=== PATIENT | male | born 1985 | race Two or more races ===

== ENCOUNTER 2018-02-07 05:01 | Inpatient (IN) | payer MEDICAID ==
[2018-02-06] MEDS: metroNIDAZOLE 500MG/100ML 100 ML IV SCH (06:00)
[~2018-02-07] VITALS: Ht 177.8 cm; Wt 102.6 kg
[2018-02-07 05:52] LABS: Urine WBC None Seen /hpf (0 - 3)
[2018-02-07 06:27] LABS: Urine Amorphous Crystal MANY /hpf (None Seen); Urine Bacteria NONE SEEN /hpf (None Seen); Urine Blood Negative /uL (Negative); Urine Mucus FEW (None Seen); Urine Specific Gravity 1.035 (1.001-1.035)
[2018-02-07 07:53] LABS: Basophils # (auto) 0 uL; Basophils % (auto) 0.2 % (0.0-2.0); Eosinophils # (auto) 0.1 uL; Eosinophils % (auto) 1.1 % (0.0-7.0); Hematocrit 44.4 % (41.0-53.0); Hemoglobin 16.1 g/dL (13.5-17.5); Lymphocytes # (auto) 2.1 uL; Lymphocytes % (auto) 20.3 % (10.0-50.0); Mean Corpuscular Hgb Conc. 36.2 g/dL (32.0-36.0); Mean Corpuscular Volume 88.3 fL (80.0-100.0); Monocytes # (auto) 0.5 uL; Monocytes % (auto) 5.3 % (0.0-12.0); Neutrophils # (auto) 7.4 uL; Neutrophils % (auto) 73.1 % (37.0-80.0); Nucleated Red Blood Cells % 0.2 %; Platelet Count (auto) 178 10^3/uL (140-450); Red Blood Cells 5.03 10^6/uL (4.5-5.90); Red Cell Distribution Width 13.8 % (11.8-14.3); White Blood Cell 10.2 10^3/uL (4.4-10.8)
[2018-02-07 08:06] LABS: BUN/Creatinine Ratio 9.3; Bilirubin, Total 1.3 mg/dL (0.2-1.0); Calcium 8.5 mg/dL (8.5-10.1); Potassium 3.1 mmol/L (3.5-5.1); Total Protein 8.1 g/dL (6.4-8.2)
[2018-02-07] MEDS ORDERED: GASTROGRAFIN 120 ML SOL ONE ×2 (08:36→09:58)
[2018-02-07] MEDS ORDERED: EZ-GAS II GRANULES (RADIOLOGY USE) PO ONE (08:37)
[2018-02-07] MEDS ORDERED: KETOROLAC TROMETH 30 MG/ML 1ML VIAL IV ONE (09:15)
[2018-02-07] MEDS ORDERED: LABETALOL HCL 5 MG/ML ML 20ML VIAL IV PRN (09:45)
[2018-02-07] MEDS ORDERED: POTASSIUM CHL 20MEQ/100ML 100 ML IV ONE ×2 (09:45→17:00)
[2018-02-07] MEDS ORDERED: MORPHINE SULFATE 4 MG/ML SYR/VIAL IV PRN (09:45)
[2018-02-07] MEDS ORDERED: NITROGLYCERIN 0.4 MG SL TAB SL PRN (09:45)
[2018-02-07] MEDS ORDERED: cefTRIAXone 1GM/10ml IVPUSH 10 ML IV ONE (09:45)
[2018-02-07] MEDS: FAMOTIDINE (10MG/ML) 2ML VL IV SCH (12:13)
[2018-02-07] MEDS: ONDANSETRON HCL 4 MG/2 ML VIAL IV PRN ×2 (12:14→15:51)
[2018-02-07] MEDS: SODIUM CHLORIDE 0.9% 1,000 ML IV SCH ×2 (12:21→17:51)
[2018-02-07] MEDS: metroNIDAZOLE 500MG/100ML 100 ML IV SCH ×3 (12:24→22:15)
[2018-02-07] MEDS ORDERED: LORazepam 2MG/ML-1ML VIAL IV ONE (13:15)
[2018-02-07] MEDS ORDERED: ONDANSETRON HCL 4 MG/2 ML VIAL IV ONE (14:45)
[2018-02-07 15:16] VITALS: BP 124/100
[2018-02-07] MEDS ORDERED: PROCHLORPERAZINE EDISYLATE 5 MG/ML 2ML VIAL IV PRN (16:15)
[2018-02-07] MEDS ORDERED: GABA100C9 PO (16:20)
[2018-02-07] MEDS ORDERED: LISI-646 PO (16:20)
[2018-02-07] MEDS ORDERED: IBUP800T24 PO (16:20)
[2018-02-07 16:27] LABS: BUN/Creatinine Ratio 8.7; Calcium 8.6 mg/dL (8.5-10.1); Potassium 3.1 mmol/L (3.5-5.1)
[2018-02-07 17:00] VITALS: BP 124/100
[2018-02-07 17:24] LABS: Lactic Acid w/Reflex 3.7 mmol/L (0.4-2.0)
[2018-02-07] MEDS: MORPHINE SULFATE 4 MG/ML SYR/VIAL IV PRN (19:00)
[2018-02-07 20:00] VITALS: BP 146/85
[2018-02-07 21:36] LABS: Calcium 8.1 mg/dL (8.5-10.1); Potassium 3.1 mmol/L (3.5-5.1)
[2018-02-07 23:07] VITALS: BP 146/85
[2018-02-08] MEDS: MORPHINE SULFATE 4 MG/ML SYR/VIAL IV PRN ×4 (01:00→20:45)
[2018-02-08] MEDS: SODIUM CHLORIDE 0.9% 1,000 ML IV SCH ×3 (03:42→19:00)
[2018-02-08 05:15] LABS: Basophils # (auto) 0 uL; Basophils % (auto) 0.1 % (0.0-2.0); Eosinophils # (auto) 0.1 uL; Eosinophils % (auto) 0.5 % (0.0-7.0); Hematocrit 43.9 % (41.0-53.0); Hemoglobin 15.3 g/dL (13.5-17.5); Lymphocytes # (auto) 2.3 uL; Lymphocytes % (auto) 20.1 % (10.0-50.0); Mean Corpuscular Hemoglobin 31.2 pg (28.0-32.0); Mean Corpuscular Hgb Conc. 34.8 g/dL (32.0-36.0); Mean Corpuscular Volume 89.7 fL (80.0-100.0); Monocytes # (auto) 0.8 uL; Monocytes % (auto) 7.3 % (0.0-12.0); Neutrophils # (auto) 8.3 uL; Nucleated Red Blood Cells % 0.1 %; Platelet Count (auto) 190 10^3/uL (140-450); Red Blood Cells 4.89 10^6/uL (4.5-5.90); Red Cell Distribution Width 13.8 % (11.8-14.3); White Blood Cell 11.5 10^3/uL (4.4-10.8)
[2018-02-08 05:21] LABS: INR 0.98 (0.9-1.15); Prothrombin Time 10.5 sec (9.27-12.13)
[2018-02-08 05:25] VITALS: BP 139/86
[2018-02-08 05:44] LABS: Albumin 3.5 g/dL (3.4-5.0); BUN/Creatinine Ratio 9.4; Calcium 7.7 mg/dL (8.5-10.1)
[2018-02-08 05:46] LABS: Bilirubin, Total 1.3 mg/dL (0.2-1.0); Total Protein 7.1 g/dL (6.4-8.2)
[2018-02-08] MEDS: metroNIDAZOLE 500MG/100ML 100 ML IV SCH ×3 (06:32→21:38)
[2018-02-08 09:00] VITALS: BP 144/82
[2018-02-08] MEDS: cefTRIAXone 1GM/10ml IVPUSH 10 ML IV SCH (09:47)
[2018-02-08] MEDS: FAMOTIDINE (10MG/ML) 2ML VL IV SCH (09:47)
[2018-02-08] MEDS: POTASSIUM CHL 20MEQ/100ML 100 ML IV SCH ×2 (12:00→14:37)
[2018-02-08 13:00] VITALS: BP 130/85
[2018-02-08 16:52] VITALS: BP 145/73
[2018-02-08] MEDS ORDERED: POTASSIUM CHL 20MEQ/100ML 100 ML IV SCH (17:45)
[2018-02-08 20:00] VITALS: BP 145/84
[2018-02-08 22:00] VITALS: BP 145/84
[2018-02-09] MEDS: MORPHINE SULFATE 4 MG/ML SYR/VIAL IV PRN ×2 (02:16→07:28)
[2018-02-09 05:00] VITALS: BP 150/90
[2018-02-09 05:36] LABS: Basophils # (auto) 0.1 uL; Basophils % (auto) 0.4 % (0.0-2.0); Eosinophils # (auto) 0.1 uL; Eosinophils % (auto) 0.7 % (0.0-7.0); Hematocrit 43.5 % (41.0-53.0); Hemoglobin 15.2 g/dL (13.5-17.5); Lymphocytes # (auto) 2.5 uL; Lymphocytes % (auto) 18.6 % (10.0-50.0); Mean Corpuscular Hemoglobin 31.3 pg (28.0-32.0); Mean Corpuscular Volume 89.4 fL (80.0-100.0); Monocytes # (auto) 0.9 uL; Monocytes % (auto) 6.6 % (0.0-12.0); Neutrophils # (auto) 9.8 uL; Neutrophils % (auto) 73.7 % (37.0-80.0); Nucleated Red Blood Cells % 0.1 %; Platelet Count (auto) 180 10^3/uL (140-450); Red Blood Cells 4.86 10^6/uL (4.5-5.90); Red Cell Distribution Width 13.8 % (11.8-14.3); White Blood Cell 13.3 10^3/uL (4.4-10.8)
[2018-02-09 06:01] LABS: Albumin 3.6 g/dL (3.4-5.0); BUN/Creatinine Ratio 9.3; Bilirubin, Total 1.5 mg/dL (0.2-1.0); Calcium 8.2 mg/dL (8.5-10.1); Magnesium 2.4 mg/dL (1.6-2.6); Total Protein 7.3 g/dL (6.4-8.2)
[2018-02-09] MEDS: SODIUM CHLORIDE 0.9% 1,000 ML IV SCH ×3 (06:02→22:38)
[2018-02-09] MEDS: metroNIDAZOLE 500MG/100ML 100 ML IV SCH ×3 (06:02→22:37)
[2018-02-09 06:07] LABS: Potassium 2.9 mmol/L (3.5-5.1)
[2018-02-09] MEDS ORDERED: POTASSIUM CHL 20MEQ/100ML 100 ML IV ONE (07:30)
[2018-02-09 08:00] VITALS: BP 149/85
[2018-02-09 09:00] VITALS: BP 152/83
[2018-02-09] MEDS: ONDANSETRON HCL 4 MG/2 ML VIAL IV PRN (10:00)
[2018-02-09] MEDS: LIDOCAINE 2% IV SCH ×2 (10:30→14:00)
[2018-02-09] MEDS: SODIUM CHL 0.9% IV SCH ×2 (10:30→14:00)
[2018-02-09] MEDS: POTASSIUM CHLORIDE IV SCH ×2 (10:30→14:00)
[2018-02-09] MEDS: cefTRIAXone 1GM/10ml IVPUSH 10 ML IV SCH (11:24)
[2018-02-09] MEDS: FAMOTIDINE (10MG/ML) 2ML VL IV SCH (11:25)
[2018-02-09 13:00] VITALS: BP 142/77
[2018-02-09 16:51] VITALS: BP 140/83
[2018-02-09 22:00] VITALS: BP 156/87
[2018-02-10 05:00] VITALS: BP 146/81
[2018-02-10 05:36] LABS: Basophils # (auto) 0 uL; Basophils % (auto) 0.2 % (0.0-2.0); Eosinophils # (auto) 0.3 uL; Eosinophils % (auto) 3.1 % (0.0-7.0); Hematocrit 40.3 % (41.0-53.0); Hemoglobin 14.5 g/dL (13.5-17.5); Lymphocytes # (auto) 3.1 uL; Lymphocytes % (auto) 29.1 % (10.0-50.0); Mean Corpuscular Hemoglobin 31.7 pg (28.0-32.0); Mean Corpuscular Volume 88.3 fL (80.0-100.0); Monocytes # (auto) 0.8 uL; Monocytes % (auto) 7.2 % (0.0-12.0); Neutrophils # (auto) 6.4 uL; Neutrophils % (auto) 60.4 % (37.0-80.0); Nucleated Red Blood Cells % 0.1 %; Platelet Count (auto) 168 10^3/uL (140-450); Red Blood Cells 4.56 10^6/uL (4.5-5.90); Red Cell Distribution Width 13.9 % (11.8-14.3); White Blood Cell 10.6 10^3/uL (4.4-10.8)
[2018-02-10 05:49] LABS: Albumin 3.3 g/dL (3.4-5.0); BUN/Creatinine Ratio 6.9; Calcium 8.2 mg/dL (8.5-10.1); Potassium 3.1 mmol/L (3.5-5.1)
[2018-02-10 06:00] LABS: Bilirubin, Total 1.2 mg/dL (0.2-1.0); Total Protein 7.1 g/dL (6.4-8.2)
[2018-02-10] MEDS: SODIUM CHLORIDE 0.9% 1,000 ML IV SCH ×3 (06:49→17:52)
[2018-02-10] MEDS: metroNIDAZOLE 500MG/100ML 100 ML IV SCH ×3 (06:49→14:09)
[2018-02-10 08:54] VITALS: BP 157/97
[2018-02-10] MEDS: PANTOPRAZOLE 40 MG TAB PO SCH (09:07)
[2018-02-10] MEDS: cefTRIAXone 1GM/10ml IVPUSH 10 ML IV SCH (09:07)
[2018-02-10 12:02] VITALS: BP 143/78
[2018-02-10] MEDS: FAMOTIDINE (10MG/ML) 2ML VL IV SCH (12:25)
[2018-02-10] MEDS: POTASSIUM CHL 20MEQ/100ML 100 ML IV SCH ×4 (12:26→20:00)
[2018-02-10 16:38] VITALS: BP 152/79
[2018-02-10 22:00] VITALS: BP 150/84
[2018-02-11 05:00] VITALS: BP 149/83
[2018-02-11] MEDS: SODIUM CHLORIDE 0.9% 1,000 ML IV SCH ×2 (05:20→13:40)
[2018-02-11 06:41] LABS: BUN/Creatinine Ratio 8.9; Calcium 8.1 mg/dL (8.5-10.1)
[2018-02-11] MEDS: FAMOTIDINE (10MG/ML) 2ML VL IV SCH (06:42)
[2018-02-11 07:35] LABS: Potassium 2.8 mmol/L (3.5-5.1)
[2018-02-11 08:03] VITALS: BP 142/83
[2018-02-11] MEDS: PANTOPRAZOLE 40 MG TAB PO SCH (09:36)
[2018-02-11 11:34] VITALS: BP 128/65
[2018-02-11] MEDS: cefTRIAXone 1GM/10ml IVPUSH 10 ML IV SCH (12:18)
[2018-02-11] MEDS: metroNIDAZOLE 500MG/100ML 100 ML IV SCH ×2 (14:00→22:47)
[2018-02-11] MEDS: POTASSIUM CHL 20MEQ/100ML 100 ML IV SCH ×4 (14:29→23:59)
[2018-02-11 17:00] VITALS: BP 134/82
[2018-02-11 21:47] VITALS: BP 142/79
[2018-02-11] MEDS: POTASSIUM CHL 20 Meq TABLET PO SCH (21:53)
[2018-02-12 05:00] VITALS: BP 122/73
[2018-02-12] MEDS: metroNIDAZOLE 500MG/100ML 100 ML IV SCH ×2 (05:36→13:34)
[2018-02-12 06:17] LABS: BUN/Creatinine Ratio 8.9; Calcium 8.2 mg/dL (8.5-10.1); Potassium 3.2 mmol/L (3.5-5.1)
[2018-02-12 09:00] VITALS: BP 135/91
[2018-02-12] MEDS: cefTRIAXone 1GM/10ml IVPUSH 10 ML IV SCH (09:00)
[2018-02-12] MEDS: POTASSIUM CHL 20 Meq TABLET PO SCH (10:18)
[2018-02-12] MEDS: PANTOPRAZOLE 40 MG TAB PO SCH (10:18)
[2018-02-12] MEDS ORDERED: POTASSIUM CHL 20 Meq TABLET PO ONE (11:00)
[2018-02-12] MEDS: POTASSIUM CHL 20MEQ/100ML 100 ML IV SCH ×2 (11:07→13:34)
[2018-02-12 13:00] VITALS: BP 138/77
[2018-02-12 17:00] VITALS: BP 139/83
== END 2018-02-12 17:20 | disposition home or self-care (01) | DRG 247 ==
LOC: ER 05:07 → TELE 05:08 → TELE-WESTW 15:14
PROVIDERS: ADMIT Internal Medicine; ATTEND Internal Medicine
DX: K56.50 Intestinal adhesions [bands], unspecified as to partial versus complete obstruction (principal); K76.0 Fatty (change of) liver, not elsewhere classified; E44.1 Mild protein-calorie malnutrition; E87.6 Hypokalemia; I10 Essential (primary) hypertension; M19.90 Unspecified osteoarthritis, unspecified site; K52.9 Noninfective gastroenteritis and colitis, unspecified; E66.9 Obesity, unspecified; Z83.3 Family history of diabetes mellitus; Z68.32 Body mass index [BMI] 32.0-32.9, adult; Z82.49 Family history of ischemic heart disease and other diseases of the circulatory system; Z90.49 Acquired absence of other specified parts of digestive tract
CPT/HCPCS: 36415; 74176; 74250; 80048; 80053; 81001; 82150; 83605; 83690; 83735; 85025; 85610; 87040; 87045; 87899; 96374; 96375; J0696; J1885; J2001; J2405; J3480; J3490

== ENCOUNTER 2018-12-28 00:09 | Emergency (ER) | payer MEDICAID ==
[~2018-12-28] VITALS: Ht 175.3 cm; Wt 99.3 kg
[~2018-12-28 00:09] MED LIST: GABA100C9 PO; IBUP800T24 PO; LISI-646 PO
[2018-12-28 00:34] LABS: Basophils # (auto) 0.1 uL; Basophils % (auto) 0.6 % (0.0-2.0); Eosinophils # (auto) 0.2 uL; Hematocrit 40.4 % (41.0-53.0); Hemoglobin 14.4 g/dL (13.5-17.5); Lymphocytes # (auto) 3.9 uL; Lymphocytes % (auto) 36.6 % (10.0-50.0); Mean Corpuscular Hemoglobin 31.7 pg (28.0-32.0); Mean Corpuscular Hgb Conc. 35.6 g/dL (32.0-36.0); Mean Corpuscular Volume 89.1 fL (80.0-100.0); Monocytes # (auto) 0.7 uL; Monocytes % (auto) 6.4 % (0.0-12.0); Neutrophils # (auto) 5.9 uL; Neutrophils % (auto) 54.4 % (37.0-80.0); Nucleated Red Blood Cells % 0.1 %; Platelet Count (auto) 166 10^3/uL (140-450); Red Blood Cells 4.54 10^6/uL (4.5-5.90); Red Cell Distribution Width 13.4 % (11.8-14.3); White Blood Cell 10.8 10^3/uL (4.4-10.8)
[2018-12-28 00:51] LABS: INR 0.94 (0.9-1.15); Partial Thromboplastin Time 24.9 sec (23.64-32.05)
[2018-12-28 00:54] LABS: Alanine Aminotransferase 49 U/L (16-61); Albumin 3.8 g/dL (3.4-5.0); Anion Gap 7 (5-15); Aspartate Aminotransferase 17 U/L (15-37); BUN/Creatinine Ratio 11.1; Blood Urea Nitrogen 13 mg/dL (7-18); Calcium 8.1 mg/dL (8.5-10.1); Carbon Dioxide 28 mmol/L (21-32); Chloride 109 mmol/L (98-107); GFR African American 92 mL/min; GFR Non-African American 76 mL/min; Glucose 107 mg/dL (74-106); Potassium 3.7 mmol/L (3.5-5.1); Sodium 144 mmol/L (136-145)
[2018-12-28 00:58] LABS: Alkaline Phosphatase 71 U/L (45-117); Bilirubin, Total 0.6 mg/dL (0.2-1.0); Total Protein 7.1 g/dL (6.4-8.2)
[2018-12-28 02:05] LABS: Urine Bacteria FEW /hpf (None Seen); Urine Blood Negative /uL (Negative); Urine Hyaline Cast FEW /lpf (0 - 2); Urine Mucus FEW (None Seen); Urine WBC 2 /hpf (0 - 3)
[2018-12-28 04:00] VITALS: BP 146/84
== END 2018-12-28 06:11 | disposition home or self-care (01) ==
LOC: ER 00:14
DX: R07.89 Other chest pain (principal); K21.9 Gastro-esophageal reflux disease without esophagitis; M19.90 Unspecified osteoarthritis, unspecified site; I10 Essential (primary) hypertension; Z79.899 Other long term (current) drug therapy; Z90.49 Acquired absence of other specified parts of digestive tract
CPT/HCPCS: 36415; 71045; 80053; 81001; 83880; 84484; 85025; 85610; 85730; 93005

== ENCOUNTER 2019-03-31 19:36 | Emergency (ER) | payer MEDICAID ==
[~2019-03-31] VITALS: Ht 177.8 cm; Wt 104.3 kg
[2019-03-31 19:39] VITALS: BP 152/99
[2019-03-31 20:26] LABS: Basophils # (auto) 0 uL; Basophils % (auto) 0.4 % (0.0-2.0); Eosinophils # (auto) 0.2 uL; Eosinophils % (auto) 1.5 % (0.0-7.0); Hematocrit 44.1 % (41.0-53.0); Hemoglobin 15.5 g/dL (13.5-17.5); Lymphocytes # (auto) 3.9 uL; Lymphocytes % (auto) 31.3 % (10.0-50.0); Mean Corpuscular Hemoglobin 31.2 pg (28.0-32.0); Mean Corpuscular Hgb Conc. 35.2 g/dL (32.0-36.0); Mean Corpuscular Volume 88.5 fL (80.0-100.0); Monocytes # (auto) 0.6 uL; Monocytes % (auto) 4.7 % (0.0-12.0); Neutrophils # (auto) 7.7 uL; Neutrophils % (auto) 62.1 % (37.0-80.0); Nucleated Red Blood Cells % 0.1 %; Platelet Count (auto) 173 10^3/uL (140-450); Red Blood Cells 4.98 10^6/uL (4.5-5.90); Red Cell Distribution Width 13.1 % (11.8-14.3); White Blood Cell 12.4 10^3/uL (4.4-10.8)
[2019-03-31 20:35] LABS: Albumin 3.7 g/dL (3.4-5.0); Anion Gap 9 (5-15); Blood Urea Nitrogen 11 mg/dL (7-18); Calcium 8.6 mg/dL (8.5-10.1); Carbon Dioxide 25 mmol/L (21-32); Chloride 105 mmol/L (98-107); Glucose 107 mg/dL (74-106); Magnesium 2.1 mg/dL (1.6-2.6); Potassium 3.1 mmol/L (3.5-5.1); Sodium 139 mmol/L (136-145)
[2019-03-31 20:37] LABS: Alanine Aminotransferase 71 U/L (16-61); Aspartate Aminotransferase 29 U/L (15-37); BUN/Creatinine Ratio 9.6; GFR African American 95 mL/min; GFR Non-African American 78 mL/min
[2019-03-31 20:42] LABS: Alkaline Phosphatase 77 U/L (45-117); Bilirubin, Total 0.7 mg/dL (0.2-1.0); Total Protein 7.7 g/dL (6.4-8.2)
== END 2019-03-31 22:40 | disposition left against medical advice (07) ==
LOC: ER 19:36
DX: R07.89 Other chest pain (principal); Z53.21 Procedure and treatment not carried out due to patient leaving prior to being seen by health care provider
CPT/HCPCS: 36415; 71045; 80053; 83735; 84484; 85025; 93005

== ENCOUNTER 2019-10-16 17:13 | Emergency (ER) | payer MEDICAID ==
[~2019-10-16] VITALS: Ht 177.8 cm; Wt 104.3 kg
[2019-10-16] MEDS ORDERED: SODIUM CHLORIDE 0.9% 1,000 ML IV ONE (17:45)
[2019-10-16 18:28] LABS: Basophils # (auto) 0 10 ^3/uL (0-0.2); Basophils % (auto) 0.3 % (0.0-2.0); Eosinophils # (auto) 0.1 10 ^3/uL (0-0.8); Eosinophils % (auto) 0.7 % (0.0-7.0); Hematocrit 45.3 % (41.0-53.0); Hemoglobin 15.8 g/dL (13.5-17.5); Lymphocytes # (auto) 1.4 10 ^3/uL (0.4-5.4); Lymphocytes % (auto) 19.7 % (10.0-50.0); Mean Corpuscular Hemoglobin 31.5 pg (28.0-32.0); Mean Corpuscular Hgb Conc. 34.9 g/dL (32.0-36.0); Mean Corpuscular Volume 90.4 fL (80.0-100.0); Monocytes # (auto) 0.6 10 ^3/uL (0-1.3); Monocytes % (auto) 8.4 % (0.0-12.0); Neutrophils # (auto) 5.1 10 ^3/uL (1.6-8.6); Neutrophils % (auto) 70.9 % (37.0-80.0); Nucleated Red Blood Cells % 0.1 %; Platelet Count (auto) 142 10^3/uL (140-450); Red Blood Cells 5.01 10^6/uL (4.5-5.90); Red Cell Distribution Width 13.6 % (11.8-14.3); White Blood Cell 7.2 10^3/uL (4.4-10.8)
[2019-10-16 18:45] LABS: Albumin 3.7 g/dL (3.4-5.0); Anion Gap 5 (5-15); BUN/Creatinine Ratio 9.8; Blood Alcohol < 3.0 mg/dL (0-5); Blood Urea Nitrogen 12 mg/dL (7-18); Calcium 7.6 mg/dL (8.5-10.1); Carbon Dioxide 25 mmol/L (21-32); Chloride 108 mmol/L (98-107); GFR African American 87 mL/min; GFR Non-African American 72 mL/min; Glucose 100 mg/dL (74-106); Potassium 3.7 mmol/L (3.5-5.1); Sodium 138 mmol/L (136-145)
[2019-10-16 18:50] LABS: Alanine Aminotransferase 61 U/L (16-61); Alkaline Phosphatase 84 U/L (45-117); Aspartate Aminotransferase 26 U/L (15-37); Bilirubin, Total 0.7 mg/dL (0.2-1.0); Total Protein 7.5 g/dL (6.4-8.2)
[2019-10-16] MEDS ORDERED: cefTRIAXone 1GM/50ML D5W 50 ML IV ONE (20:00)
[2019-10-16] MEDS ORDERED: AZITHROMYCIN 500MG/ 250ML 250 ML IV ONE (20:00)
[2019-10-16] MEDS ORDERED: SODIUM CHLORIDE 0.9% 500 ML IV ONE (20:00)
[2019-10-16 20:30] VITALS: BP 122/69
== END 2019-10-17 00:13 | disposition home or self-care (01) ==
LOC: EDBD 17:13 → ER 17:13
DX: R55 Syncope and collapse (principal); R07.89 Other chest pain; R42 Dizziness and giddiness; I10 Essential (primary) hypertension; J45.909 Unspecified asthma, uncomplicated; Z90.49 Acquired absence of other specified parts of digestive tract
CPT/HCPCS: 36415; 70450; 71045; 74176; 80053; 80320; 82728; 84484; 85025; 93005; 96361; 96365; 96366; 96368; 99285; J0456; J0696; J7030

== ENCOUNTER 2024-12-11 19:14 | Emergency (ER) | payer MEDICAID ==
[~2024-12-11 19:14] MED LIST changes: +GABA-1308 PO; -GABA100C9 PO; +IBUP-1456 PO; -IBUP800T24 PO; -LISI-646 PO; +LISI20TA56 PO
== END 2024-12-11 20:40 | disposition left against medical advice (07) ==
LOC: ER 19:14
DX: T14.8XXA Other injury of unspecified body region, initial encounter (principal); Z53.21 Procedure and treatment not carried out due to patient leaving prior to being seen by health care provider; W57.XXXA Bitten or stung by nonvenomous insect and other nonvenomous arthropods, initial encounter; Y93.89 Activity, other specified; Y92.89 Other specified places as the place of occurrence of the external cause; Y99.8 Other external cause status